=== PATIENT | male | born 1985 | race Caucasian/White ===

== ENCOUNTER 2020-01-01 02:34 | Emergency (ER) | payer OTHER, SELFPAY ==
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
--- NOTE | ~2020-01-01 | CT_ITS ---
EXAMINATION: CT facial & cervical spine wo DATE: 01/01/2020 03:39 INDICATION: Head injury. TECHNIQUE: Computed tomography (CT) of the maxillofacial region and cervical spine was performed with out intravenous contrast. Automated exposure control and iterative reconstruction technique were empl oyed. The dose-length product was 350.11 mGy-cm. COMPARISON: None FINDINGS: MAXILLOFACIAL CT: There is right frontal scalp soft tissue swelling. There is rightward deviation of the nasal septum. There are fracture deformities of the nasal bones. There is soft tissue swelling and soft tissue gas in the left face. There is soft tissue swelling of the right cheek. There is minimal mucosal thickeni ng in the paranasal sinuses. There is a carious lesion of tooth 30. CERVICAL SPINE CT: There is mild scarring at the lung apices. There is kyphosis of cervical spine. Vertebral body height s and intervertebral disc heights are normal. At C7-T1, there is moderate bilateral facet joint osteo arthritis. No neural foraminal stenosis or central canal stenosis. IMPRESSION: 1. Age-indeterminant fracture deformities of the nasal bones. 2. Kyphosis of cervical spine. Reviewed, dictated and finalized at location A.
[2020-01-01 02:39] VITALS: BP 152/97; PULSE 95; RESP 20; TEMP 36.7; O2SAT 98
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
[2020-01-01 04:22] VITALS: BP 130/83; PULSE 94; RESP 18; O2SAT 97
[2020-01-01 05:19] VITALS: BP 129/91; PULSE 93; RESP 18; O2SAT 99
== END 2020-01-01 05:20 | disposition home or self-care (01) ==
PROVIDERS: Emergency Provider Emergency Medicine
DX: S01.512A Laceration without foreign body of oral cavity, initial encounter (principal); S05.11XA Contusion of eyeball and orbital tissues, right eye, initial encounter; S00.83XA Contusion of other part of head, initial encounter; Y04.2XXA Assault by strike against or bumped into by another person, initial encounter
CPT/HCPCS: 70450; 70486; 72125; 99284